=== PATIENT | male | born 1995 | race Caucasian/White ===

== ENCOUNTER 2025-02-13 00:29 | Emergency (ER) | payer OTHER ==
[2025-02-13] MEDS ORDERED: SEPTDS PO (00:38)
[2025-02-13] MEDS ORDERED: Acetaminophen/Hydrocodone 5 MG/325 MG TABLET PO ONE (00:40)
[2025-02-13] MEDS ORDERED: Sulfamethoxazole/Trimethopri 1 TAB TAB PO ONE (00:40)
[2025-02-13 00:52] LABS: BASO # 0.0 10*3/uL (0.0-0.1); BASO % 0.2 % (0.0-1.0); EOS # 0.2 10*3/uL (0.0-0.4); EOS % 1.8 % (1.0-4.0); MEAN CELL VOLUME 88.6 fl (80.0-94.0); MEAN CORPUSCULAR HGB 31.1 pg (27.0-31.0); MEAN PLATELET VOLUME 8.7 fl (9.6-12.3); MONO # 0.7 10*3/uL (0.1-1.0); MONO % 7.9 % (3.0-9.0); NEUT # 5.5 10*3/uL (2.3-7.9); NEUT % 60.7 % (47.0-73.0); NUCLEATED RED BLOOD CELL 0.0 % (0.0-0.0); NUCLEATED RED BLOOD CELL 0.0 10*3/uL (0.0-0.0); PLATELET COUNT AUTOMATED 249 10*3/uL (130-400); RED CELL DISTRI WIDTH 11.7 % (0-14.5)
[2025-02-13 01:10] LABS: BUN 19 mg/dl (9-23)
== END 2025-02-13 01:01 ==
LOC: ED 00:29
PROVIDERS: Nurse Practitioner Family
DX: L02.413 Cutaneous abscess of right upper limb (principal)